=== PATIENT | male | born 1970 | race Caucasian/White ===

== ENCOUNTER → 2016-09-26 | Outpatient (CLI) | payer OTHER | END | disposition home or self-care (01) | LOC: EDSTATUS 09-25 08:31 → ROC 08:23 | PROVIDERS: ATTEND Radiology Radiation Oncology | DX: C76.0 Malignant neoplasm of head, face and neck (principal); F17.200 Nicotine dependence, unspecified, uncomplicated; F10.20 Alcohol dependence, uncomplicated; Z88.0 Allergy status to penicillin; Z79.899 Other long term (current) drug therapy | CPT/HCPCS: 99212; G0463 ==

== ENCOUNTER → 2016-11-02 | Outpatient (CLI) | payer OTHER | END | disposition home or self-care (01) | LOC: ROC 08:15 | PROVIDERS: ATTEND Radiology Radiation Oncology | DX: Z08 Encounter for follow-up examination after completed treatment for malignant neoplasm (principal); C76.0 Malignant neoplasm of head, face and neck; R63.5 Abnormal weight gain; Z92.3 Personal history of irradiation; Z88.0 Allergy status to penicillin | CPT/HCPCS: 99212; G0463 ==

== ENCOUNTER → 2016-11-16 | Outpatient (CLI) | payer OTHER | END | disposition home or self-care (01) | LOC: ROC 09:56 | PROVIDERS: ATTEND Radiology Radiation Oncology | DX: C76.0 Malignant neoplasm of head, face and neck (principal) | CPT/HCPCS: 99212; G0463 ==

== ENCOUNTER → 2016-12-01 | Outpatient (CLI) | payer OTHER, MEDICAID ==
[~2016-12-01] MED LIST: CITA40TA12 PO; DEXA1TAB5 PO; HYDR120S6 PO; LEVO50TA5 PO; LORA0.5T PO; Zinc PO; [UNRECOGNIZED DRUG - OTHER] PO
== END ==
LOC: STAR 14:06
PROVIDERS: ATTEND Otolaryngology
DX: Z02.9 Encounter for administrative examinations, unspecified (principal)

== ENCOUNTER 2016-12-05 05:19 | Day surgery (SDC) | payer OTHER, MEDICAID ==
[~2016-12-05] VITALS: Ht 185.4 cm; Wt 64.2 kg
[2016-12-05 06:18] VITALS: BP 153/104
[2016-12-05] MEDS ORDERED: LACTATED RINGERS 1,000 ML IV SCH (06:21)
[2016-12-05] MEDS ORDERED: EPINEPHRINE 1 MG/ML, 1ML ONE ×2 (07:05→08:29)
[2016-12-05] MEDS ORDERED: EPINEPHRINE TOPICAL SOLN 1 MG/ML, 30ML ONE (07:05)
[2016-12-05] MEDS ORDERED: FLUORESCEIN OPHTHALMIC 1 MG STRIP ONE (07:06)
[2016-12-05] MEDS ORDERED: MIDAZOLAM 1 MG/ML, 2ML ONE (07:14)
[2016-12-05] MEDS ORDERED: PROPOFOL 10 MG/ML, 20ML ONE (07:14)
[2016-12-05] MEDS ORDERED: FENTANYL PF 100 MCG/2ML ONE (07:14)
[2016-12-05] MEDS ORDERED: LIDOCAINE-MPF 2% ,5ML ONE (07:15)
[2016-12-05] MEDS ORDERED: PHENYLEPHRINE 10 MG/ML ONE (07:16)
[2016-12-05] MEDS ORDERED: ROCURONIUM 10 MG/ML ONE (07:16)
[2016-12-05] MEDS ORDERED: ONDANSETRON 2MG/ML, 2ML ONE ×3 (07:41)
[2016-12-05] MEDS ORDERED: DEXAMETHASONE 4 MG/ML, 1ML ONE ×2 (07:41)
[2016-12-05] MEDS ORDERED: CEFAZOLIN 1,000 MG ONE ×2 (07:46)
[2016-12-05] MEDS ORDERED: HYDROmorphone 1 MG/ML, 1ML ONE (07:52)
[2016-12-05] MEDS ORDERED: LIDOCAINE/PF 1%, 30ML INFIL ONE (07:56)
[2016-12-05] MEDS ORDERED: EPINEPHRINE 1 MG/ML, 1ML INFIL ONE (07:57)
[2016-12-05] MEDS ORDERED: FENTANYL PF 100 MCG/2ML IV PRN (08:00)
[2016-12-05] MEDS ORDERED: LORazepam 2 MG/ML, 1ML IVPush PRN (08:00)
[2016-12-05] MEDS ORDERED: LABETALOL 5MG/ML, 20ML IV PRN (08:00)
[2016-12-05] MEDS ORDERED: OXYcodone 5 MG/5 ML ORAL.SOL UDC PO PRN (08:00)
[2016-12-05] MEDS ORDERED: ACETAMINOPHEN 325 MG TABLET PO PRN (08:00)
[2016-12-05] MEDS ORDERED: HYDROmorphone 1 MG/ML, 1ML IV PRN (08:00)
[2016-12-05] MEDS ORDERED: hydrALAzine 20 MG/ML, 1ML IV PRN (08:00)
[2016-12-05] MEDS ORDERED: MEPERIDINE/PF 25MG/0.5ML IVPush PRN (08:00)
[2016-12-05] MEDS ORDERED: ONDANSETRON 2MG/ML, 2ML IVPush PRN (08:00)
[2016-12-05] MEDS ORDERED: PROMETHAZINE 25 MG/ML, 1ML IV PRN (08:00)
[2016-12-05] MEDS ORDERED: LIDOCAINE/PF 1%, 30ML ONE (08:29)
[2016-12-05] MEDS ORDERED: ACETAMINOPHEN 650 MG/20.3 ML UDC ONE (08:58)
[2016-12-05] MEDS ORDERED: OXYcodone 5 MG/5 ML ORAL.SOL UDC ONE (08:58)
[2016-12-05] MEDS ORDERED: LABETALOL 5MG/ML, 20ML ONE (09:02)
== END 2016-12-05 10:20 ==
LOC: OUT 05:19
PROVIDERS: ATTEND Otolaryngology
DX: C06.89 Malignant neoplasm of overlapping sites of other parts of mouth (principal); K13.21 Leukoplakia of oral mucosa, including tongue; I10 Essential (primary) hypertension; Z88.0 Allergy status to penicillin; F32.9 Major depressive disorder, single episode, unspecified; F41.9 Anxiety disorder, unspecified; E03.9 Hypothyroidism, unspecified; Z85.828 Personal history of other malignant neoplasm of skin
CPT/HCPCS: 31535; 41112; 88305; J0171; J0690; J1100; J1170; J2250; J2370; J2405; J2704; J3010; J3490; J7120

== ENCOUNTER → 2017-01-18 | Outpatient (CLI) | payer OTHER, MEDICAID | END | disposition home or self-care (01) | LOC: ROC 12:58 | PROVIDERS: ATTEND Radiology Radiation Oncology | DX: Z08 Encounter for follow-up examination after completed treatment for malignant neoplasm (principal); C44.42 Squamous cell carcinoma of skin of scalp and neck; C80.1 Malignant (primary) neoplasm, unspecified; Z88.0 Allergy status to penicillin | CPT/HCPCS: 99212; G0463 ==

== ENCOUNTER → 2017-03-05 | Outpatient (CLI) | payer MEDICAID | END | disposition home or self-care (01) | LOC: ROC 10:35 | PROVIDERS: ATTEND Radiology Radiation Oncology | DX: C76.0 Malignant neoplasm of head, face and neck (principal) | CPT/HCPCS: 99212; G0463 ==

== ENCOUNTER → 2017-03-19 | Outpatient (CLI) | payer MEDICAID | END | disposition home or self-care (01) | LOC: ROC 08:28 | PROVIDERS: ATTEND Radiology Radiation Oncology | DX: C44.42 Squamous cell carcinoma of skin of scalp and neck (principal); Z88.0 Allergy status to penicillin | CPT/HCPCS: 99212; G0463 ==

== ENCOUNTER 2017-03-27 15:12 | Inpatient (IN) | payer MEDICAID ==
[~2017-03-27] VITALS: Ht 185.4 cm; Wt 54.8 kg
[2017-03-27] MEDS ORDERED: DEXAMETHASONE 4 MG/ML, 1ML PO ONE (15:30)
[2017-03-27 15:52] LABS: MEAN CORPUSCULAR HEMOGLOBIN 32.5 pg (27.5-34.5); MEAN CORPUSCULAR HGB CONC 33.5 g/dL (33.2-36.2); MEAN CORPUSCULAR VOLUME 96.8 fL (81-97); MEAN PLATELET VOLUME 7.9 fL (7.4-10.4); PLATELET COUNT 233 x10^3/uL (130-400); RED CELL DISTRIBUTION WIDTH 14.5 % (9.4-14.8)
[2017-03-27 15:56] LABS: MD YES
[2017-03-27 16:03] LABS: ALBUMIN 3.7 g/dL (3.4-5.0); ANION GAP 13 mmol/L (5-15); CALCIUM 8.5 mg/dL (8.5-10.1); CHLORIDE 94 mmol/L (98-107)
[2017-03-27 16:04] LABS: CREATININE 0.68 mg/dL (0.7-1.3)
[2017-03-27 16:28] LABS: BANDS%(MANUAL) 4 % (0-7); LYMPHS% (MANUAL) 6 % (22-44); MONOS% (MANUAL) 6 % (2-9); SEGS% (MANUAL) 84 % (42-75)
[2017-03-27 16:30] LABS: <PLATELET ESTIMATE> ADEQUATE; <PLT MORPHOLOGY> NORMAL PLT MORPH; <RBC MORPHOLOGY> NORMAL
[2017-03-27] MEDS ORDERED: MORPHINE SULFATE 4 MG/ML, 1ML IVPush PRN (19:30)
[2017-03-27] MEDS ORDERED: CEFTRIAXONE PMX 1GM/50ML 50 ML IV ONE (19:30)
[2017-03-27] MEDS ORDERED: SODIUM CHLORIDE 0.9% 1,000ML IVBOLUS ONE (19:30)
[2017-03-27] MEDS ORDERED: ONDANSETRON 2MG/ML, 2ML IVPush ONE (19:30)
[2017-03-27] MEDS ORDERED: DEXAMETHASONE 4 MG/ML, 1ML IVPush ONE (19:30)
[2017-03-27] MEDS ORDERED: MORPHINE SULFATE 4 MG/ML, 1ML ONE (19:42)
[2017-03-27] MEDS ORDERED: LEVO75TA5 PO (20:43)
[2017-03-27] MEDS ORDERED: CEFTRIAXONE PMX 1GM/50ML 50 ML ONE (20:51)
[2017-03-27] MEDS ORDERED: FLUCONAZOLE 100MG/50ML 100 MG in BAG 1 EACH IV SCH (21:00)
[2017-03-27] MEDS ORDERED: ONDANSETRON 2MG/ML, 2ML IVPush PRN (21:00)
[2017-03-27] MEDS ORDERED: NYSTATIN 500,000 UNITS/5 ML UDC PO ONE (21:00)
[2017-03-27] MEDS: CEFTRIAXONE PMX 1GM/50ML 50 ML IV SCH (21:00)
[2017-03-27] MEDS: ENOXAPARIN 40 MG/0.4 ML SQ SCH (21:00)
[2017-03-27] MEDS ORDERED: maalox/diphenh/lido/sucralfate 5 ML PO PRN (21:00)
[2017-03-27 21:38] VITALS: BP 149/91
[2017-03-27] MEDS: morphine SULFATE 10 MG/ML, 1ML IVPush PRN (22:46)
[2017-03-27] MEDS ORDERED: LORazepam 0.5MG TABLET PO PRN (23:30)
[2017-03-27] MEDS: NICOTINE 21 MG/24 HR PATCH.TD24 TD SCH (23:59)
[2017-03-28 01:08] VITALS: BP 133/87
[2017-03-28] MEDS ORDERED: MORPHINE SULFATE 4 MG/ML, 1ML ONE (02:22)
[2017-03-28] MEDS: morphine SULFATE 10 MG/ML, 1ML IVPush PRN ×4 (02:25→20:20)
[2017-03-28] MEDS: ZOLPIDEM 5MG TABLET PO PRN ×2 (02:36→23:27)
[2017-03-28 02:49] LABS: MEAN CORPUSCULAR HEMOGLOBIN 32.6 pg (27.5-34.5); MEAN CORPUSCULAR VOLUME 95.8 fL (81-97); MEAN PLATELET VOLUME 8.2 fL (7.4-10.4); PLATELET COUNT 218 x10^3/uL (130-400); RED CELL DISTRIBUTION WIDTH 14.7 % (9.4-14.8)
[2017-03-28 02:58] LABS: ANION GAP 13 mmol/L (5-15); CALCIUM 8.3 mg/dL (8.5-10.1); CHLORIDE 102 mmol/L (98-107); CREATININE 0.54 mg/dL (0.7-1.3)
[2017-03-28 03:03] LABS: MD YES
[2017-03-28 03:06] LABS: BAND#(MANUAL) 1.04 x10^3/uL; BANDS%(MANUAL) 5 % (0-7); SEG#(MANUAL) 19.76 x10^3/uL (1.8-6.8); SEGS% (MANUAL) 95 % (42-75)
[2017-03-28 03:07] LABS: <PLATELET ESTIMATE> ADEQUATE; <PLT MORPHOLOGY> NORMAL PLT MORPH; <RBC MORPHOLOGY> NORMAL
[2017-03-28 07:26] VITALS: BP 141/95
[2017-03-28] MEDS ORDERED: LORazepam 0.5MG TABLET PO ONE (09:30)
[2017-03-28 13:47] VITALS: BP 154/84
[2017-03-28 14:11] LABS: CLOSTRIDIUM DIFFICILE ANTIGEN NEGATIVE; CLOSTRIDIUM DIFFICILE TOXIN NEGATIVE (Negative)
[2017-03-28] MEDS: SUCRALFATE 1 GM/10 ML UDC PO SCH ×2 (16:31→20:20)
[2017-03-28 19:14] VITALS: BP 155/92
[2017-03-28] MEDS: CEFTRIAXONE PMX 1GM/50ML 50 ML IV SCH (20:20)
[2017-03-28] MEDS: LORazepam 0.5MG TABLET PO SCH (20:20)
[2017-03-28] MEDS: ENOXAPARIN 40 MG/0.4 ML SQ SCH (20:23)
[2017-03-28] MEDS: NICOTINE 21 MG/24 HR PATCH.TD24 TD SCH (22:11)
[2017-03-28] MEDS ORDERED: FLUCONAZOLE 200 MG/100 ML 100 ML IV ONE (22:30)
[2017-03-29 01:55] VITALS: BP 142/97
[2017-03-29 03:16] LABS: MEAN CORPUSCULAR HEMOGLOBIN 32.4 pg (27.5-34.5); MEAN CORPUSCULAR HGB CONC 33.6 g/dL (33.2-36.2); MEAN CORPUSCULAR VOLUME 96.3 fL (81-97); PLATELET COUNT 184 x10^3/uL (130-400); RED BLOOD COUNT 4.54 x10^6/uL (4.38-5.82); RED CELL DISTRIBUTION WIDTH 14.7 % (9.4-14.8)
[2017-03-29 03:24] LABS: ANION GAP 10 mmol/L (5-15); CALCIUM 8.5 mg/dL (8.5-10.1); CHLORIDE 99 mmol/L (98-107); CREATININE 0.59 mg/dL (0.7-1.3)
[2017-03-29 03:39] LABS: BASOPHILS % (AUTO) 0 % (0-1); EOSINOPHILS % (AUTO) 0 % (1-7); LYMPHOCYTES # (AUTO) 0.56 x10^3/uL (1-3.4); LYMPHOCYTES % (AUTO) 3 % (22-44); MD SCAN; MONOCYTES # (AUTO) 0.71 x10^3/uL (0.2-0.8); MONOCYTES % (AUTO) 4 % (2-9); NEUTROPHILS # (AUTO) 16.56 x10^3/uL (1.8-6.8); NEUTROPHILS % (AUTO) 93 % (42-75)
[2017-03-29] MEDS: morphine SULFATE 10 MG/ML, 1ML IVPush PRN ×3 (06:11→20:06)
[2017-03-29] MEDS: SUCRALFATE 1 GM/10 ML UDC PO SCH ×4 (06:11→20:06)
[2017-03-29 06:36] VITALS: BP 157/91
[2017-03-29] MEDS: LORazepam 0.5MG TABLET PO SCH ×2 (07:53→20:06)
[2017-03-29 12:13] VITALS: BP 126/90
[2017-03-29 18:49] VITALS: BP 127/89
[2017-03-29] MEDS: NICOTINE 21 MG/24 HR PATCH.TD24 TD SCH (20:06)
[2017-03-29] MEDS: ENOXAPARIN 40 MG/0.4 ML SQ SCH (20:06)
[2017-03-29] MEDS: NEUTRA PHOS K 250 MG TABLET PO SCH (20:06)
[2017-03-29] MEDS: ZOLPIDEM 5MG TABLET PO PRN (22:06)
[2017-03-29] MEDS ORDERED: FLUCONAZOLE 100MG/50ML 100 MG in BAG 1 EACH IVPB SCH (22:30)
[2017-03-30 00:50] VITALS: BP 142/98
[2017-03-30] MEDS: morphine SULFATE 10 MG/ML, 1ML IVPush PRN ×2 (04:41→08:48)
[2017-03-30 05:03] LABS: ANION GAP 3 mmol/L (5-15); CALCIUM 8.2 mg/dL (8.5-10.1); CHLORIDE 100 mmol/L (98-107); CREATININE 0.62 mg/dL (0.7-1.3)
[2017-03-30 05:08] LABS: BASOPHILS # (AUTO) 0.01 x10^3/uL (0-0.1); BASOPHILS % (AUTO) 0 % (0-1); EOSINOPHILS # (AUTO) 0.03 x10^3/uL (0-0.4); EOSINOPHILS % (AUTO) 0 % (1-7); LYMPHOCYTES # (AUTO) 0.76 x10^3/uL (1-3.4); LYMPHOCYTES % (AUTO) 9 % (22-44); MD NO; MEAN CORPUSCULAR HEMOGLOBIN 32.4 pg (27.5-34.5); MEAN CORPUSCULAR HGB CONC 33.8 g/dL (33.2-36.2); MEAN CORPUSCULAR VOLUME 95.9 fL (81-97); MONOCYTES % (AUTO) 4 % (2-9); NEUTROPHILS # (AUTO) 7.55 x10^3/uL (1.8-6.8); NEUTROPHILS % (AUTO) 87 % (42-75); PLATELET COUNT 171 x10^3/uL (130-400); RED BLOOD COUNT 4.35 x10^6/uL (4.38-5.82); RED CELL DISTRIBUTION WIDTH 14.4 % (9.4-14.8)
[2017-03-30] MEDS: SUCRALFATE 1 GM/10 ML UDC PO SCH ×2 (06:05→11:05)
[2017-03-30 06:38] VITALS: BP 133/83
[2017-03-30] MEDS ORDERED: MAGNESIUM SULFATE PMX 2GM/50ML 50 ML IV ONE (07:30)
[2017-03-30] MEDS: NICOTINE 21 MG/24 HR PATCH.TD24 TD SCH (08:41)
[2017-03-30] MEDS: NEUTRA PHOS K 250 MG TABLET PO SCH (08:41)
[2017-03-30] MEDS: LORazepam 0.5MG TABLET PO SCH (08:42)
[2017-03-30] MEDS ORDERED: SUCR1ORA5 PO (11:23)
[2017-03-30] MEDS ORDERED: FLUC100T PO (11:23)
[2017-03-30 13:02] VITALS: BP 124/87
== END 2017-03-30 15:30 | disposition home or self-care (01) | DRG 872 ==
LOC: ED 19:32 → 3NW 19:43 → DCLOUNGE 03-30 15:13
PROVIDERS: ADMIT Internal Medicine; ATTEND Internal Medicine
DX: A41.9 Sepsis, unspecified organism (principal); B37.81 Candidal esophagitis; E83.39 Other disorders of phosphorus metabolism; E83.42 Hypomagnesemia; F11.20 Opioid dependence, uncomplicated; J02.9 Acute pharyngitis, unspecified; R63.3 Feeding difficulties; F17.210 Nicotine dependence, cigarettes, uncomplicated; F10.20 Alcohol dependence, uncomplicated; F41.9 Anxiety disorder, unspecified; G89.29 Other chronic pain; Z83.3 Family history of diabetes mellitus; Z85.819 Personal history of malignant neoplasm of unspecified site of lip, oral cavity, and pharynx; Z92.21 Personal history of antineoplastic chemotherapy; Z92.3 Personal history of irradiation; Z88.0 Allergy status to penicillin
CPT/HCPCS: 36415; 80048; 82040; 83605; 83735; 84100; 85025; 86703; 87040; 87081; 87324; 87880; 87899; 96374; J0696; J1100; G0435; J1450; J2270; J3475; J7030

== ENCOUNTER 2017-04-11 18:28 | Emergency (ER) | payer MEDICAID ==
[~2017-04-11] VITALS: Ht 185.4 cm; Wt 60.0 kg
[~2017-04-11 18:28] MED LIST changes: +FLUC100T PO; +LEVO75TA5 PO; +SUCR1ORA5 PO
[2017-04-11] MEDS ORDERED: SODIUM CHLORIDE 0.9% 1,000 ML IV ONE (18:38)
[2017-04-11 19:00] LABS: BASOPHILS # (AUTO) 0.03 x10^3/uL (0-0.1); BASOPHILS % (AUTO) 0 % (0-1); EOSINOPHILS # (AUTO) 0.07 x10^3/uL (0-0.4); EOSINOPHILS % (AUTO) 1 % (1-7); LYMPHOCYTES # (AUTO) 1.32 x10^3/uL (1-3.4); LYMPHOCYTES % (AUTO) 10 % (22-44); MD NO; MEAN CORPUSCULAR HEMOGLOBIN 32.6 pg (27.5-34.5); MEAN CORPUSCULAR HGB CONC 33.4 g/dL (33.2-36.2); MEAN CORPUSCULAR VOLUME 97.6 fL (81-97); MEAN PLATELET VOLUME 6.6 fL (7.4-10.4); MONOCYTES # (AUTO) 0.61 x10^3/uL (0.2-0.8); MONOCYTES % (AUTO) 5 % (2-9); NEUTROPHILS # (AUTO) 10.85 x10^3/uL (1.8-6.8); NEUTROPHILS % (AUTO) 84 % (42-75); PLATELET COUNT 614 x10^3/uL (130-400); RED BLOOD COUNT 4.28 x10^6/uL (4.38-5.82); RED CELL DISTRIBUTION WIDTH 15.8 % (9.4-14.8)
[2017-04-11] MEDS ORDERED: ONDANSETRON 2MG/ML, 2ML IVPush ONE (19:00)
[2017-04-11] MEDS ORDERED: SODIUM CHLORIDE 0.9% 1,000ML IVBOLUS ONE (19:00)
[2017-04-11] MEDS ORDERED: MORPHINE SULFATE 4 MG/ML, 1ML IVPush PRN (19:00)
[2017-04-11 19:10] LABS: ANION GAP 7 mmol/L (5-15); CALCIUM 8.3 mg/dL (8.5-10.1); CHLORIDE 105 mmol/L (98-107); CREATININE 0.62 mg/dL (0.7-1.3)
[2017-04-11 19:11] LABS: ALBUMIN 3.7 g/dL (3.4-5.0)
[2017-04-11] MEDS ORDERED: ONDANSETRON 2MG/ML, 2ML ONE (20:09)
[2017-04-11] MEDS ORDERED: MORPHINE SULFATE 4 MG/ML, 1ML ONE (20:09)
[2017-04-11] MEDS ORDERED: IBUP-1221 PO (20:32)
[2017-04-11] MEDS ORDERED: CLON-364 PO (20:32)
[2017-04-11] MEDS ORDERED: PILO5TAB PO (20:32)
[2017-04-11] MEDS ORDERED: ZALE5CAP PO (20:32)
[2017-04-11] MEDS ORDERED: ACET-1600 PO (20:32)
[2017-04-11] MEDS ORDERED: CEFTRIAXONE PMX 1GM/50ML 50 ML IV ONE (21:00)
[2017-04-11] MEDS ORDERED: DEXAMETHASONE 4 MG/ML, 5ML ONE (21:00)
[2017-04-11] MEDS ORDERED: CEFTRIAXONE PMX 1GM/50ML 50 ML ONE (21:00)
[2017-04-11] MEDS ORDERED: DEXAMETHASONE 4 MG/ML, 1ML IVPush ONE (21:00)
[2017-04-11 21:37] VITALS: BP 116/74
== END 2017-04-11 21:53 | disposition home or self-care (01) ==
LOC: ED 20:11
DX: R13.14 Dysphagia, pharyngoesophageal phase (principal); J02.0 Streptococcal pharyngitis
CPT/HCPCS: 36415; 71045; 80048; 82040; 85025; 96361; 96365; 96375; 99285; J0696; J1100; J2405; J7030

== ENCOUNTER 2017-05-01 20:16 | Inpatient (IN) | payer MEDICAID ==
[~2017-05-01] VITALS: Ht 182.9 cm; Wt 67.5 kg
[~2017-05-01 20:16] MED LIST changes: +ACET-1600 PO; +CLON-364 PO; +IBUP-1221 PO; +PILO5TAB PO; +ZALE5CAP PO
[2017-05-01] MEDS ORDERED: SODIUM CHLORIDE FLUSH 10ML SYR IVF ONE (21:00)
[2017-05-01] MEDS ORDERED: LORazepam 2 MG/ML, 1ML IVPush ONE (21:00)
[2017-05-01] MEDS ORDERED: SODIUM CHLORIDE 0.9% 1,000ML IVBOLUS ONE ×2 (21:00→22:30)
[2017-05-01 21:09] LABS: MEAN CORPUSCULAR HEMOGLOBIN 32.9 pg (27.5-34.5); MEAN CORPUSCULAR HGB CONC 34.1 g/dL (33.2-36.2); MEAN CORPUSCULAR VOLUME 96.4 fL (81-97); MEAN PLATELET VOLUME 6.1 fL (7.4-10.4); PLATELET COUNT 526 x10^3/uL (130-400); RED BLOOD COUNT 3.98 x10^6/uL (4.38-5.82); RED CELL DISTRIBUTION WIDTH 16.9 % (9.4-14.8)
[2017-05-01 21:23] LABS: ALANINE AMINOTRANSFERASE 57 U/L (12-78); ALBUMIN 3.8 g/dL (3.4-5.0); ANION GAP 9 mmol/L (5-15); CALCIUM 8.3 mg/dL (8.5-10.1); CHLORIDE 102 mmol/L (98-107); CREATININE 0.61 mg/dL (0.7-1.3)
[2017-05-01 21:27] LABS: MD YES
[2017-05-01 21:28] LABS: ALKALINE PHOSPHATASE 224 U/L (45-117); BILIRUBIN,TOTAL 0.6 mg/dL (0.2-1.0); TOTAL PROTEIN 7.6 g/dL (6.4-8.2)
[2017-05-01 21:30] LABS: BAND#(MANUAL) 0.22 x10^3/uL; BANDS%(MANUAL) 1 % (0-7); LYMPH#(MANUAL) 0.44 x10^3/uL (1-3.4); LYMPHS% (MANUAL) 2 % (22-44); MONOS#(MANUAL) 0.44 x10^3/uL (0.3-2.7); MONOS% (MANUAL) 2 % (2-9); SEG#(MANUAL) 20.81 x10^3/uL (1.8-6.8); SEGS% (MANUAL) 95 % (42-75)
[2017-05-01 21:31] LABS: <PLATELET ESTIMATE> INCREASED; <PLT MORPHOLOGY> NORMAL PLT MORPH; <RBC MORPHOLOGY> NORMAL
[2017-05-01] MEDS ORDERED: LORazepam 2 MG/ML, 1ML ONE (21:38)
[2017-05-01] MEDS ORDERED: OMNIPAQUE 350 MG/ML, 100ML BOTTLE ONE (21:53)
[2017-05-01] MEDS ORDERED: ZALE5CAP PO (22:18)
[2017-05-01] MEDS ORDERED: ZOLP10TA5 PO (22:18)
[2017-05-01] MEDS ORDERED: LORA0.5T PO (22:18)
[2017-05-01] MEDS ORDERED: AZITHROMYCIN 500 MG in SODIUM CHLORIDE 0.9% 250 ML IV ONE (22:30)
[2017-05-01] MEDS ORDERED: CEFTRIAXONE PMX 1GM/50ML 50 ML IVPB ONE (22:30)
[2017-05-01] MEDS ORDERED: CEFTRIAXONE PMX 1GM/50ML 50 ML ONE (22:36)
[2017-05-01] MEDS ORDERED: ZOLPIDEM 10MG TABLET PO SCH (23:30)
[2017-05-01] MEDS: HEPARIN 5,000 UNITS/ML, 1ML SQ SCH (23:30)
[2017-05-01] MEDS ORDERED: ONDANSETRON 2MG/ML, 2ML IVPush PRN (23:30)
[2017-05-01] MEDS ORDERED: CEFTRIAXONE PMX 1GM/50ML 50 ML IV SCH (23:30)
[2017-05-01] MEDS: TEMPLATE NON-FORMULARY MED. (Zaleplon** 10 MG) HOMEMEDPO SCH (23:30)
[2017-05-01] MEDS ORDERED: ACETAMINOPHEN 325 MG TABLET PO PRN (23:30)
[2017-05-01] MEDS ORDERED: POLYETHYLENE GLYCOL 17 GM PACKET PO PRN (23:30)
[2017-05-01] MEDS ORDERED: BISACODYL 10 MG SUPP PR PRN (23:30)
[2017-05-01] MEDS ORDERED: AZITHROMYCIN 500 MG in SODIUM CHLORIDE 0.9% 250 ML IV SCH (23:30)
[2017-05-01] MEDS ORDERED: CEFEPIME 2 GM in DEXTROSE 5% 100 ML IV SCH (23:30)
[2017-05-01] MEDS ORDERED: GUAIFENESIN/DM 200-20MG, 10ML UDC PO PRN (23:30)
[2017-05-01] MEDS: TEMPLATE NON-FORMULARY MED. (Pilocarpine Hcl** 5 MG) HOMEMEDPO SCH (23:30)
[2017-05-02] MEDS: NICOTINE 14MG/24 HR PATCH.TD24 TD SCH ×2 (00:37→21:54)
[2017-05-02] MEDS: LORazepam 0.5MG TABLET PO SCH ×3 (00:38→15:30)
[2017-05-02] MEDS: SODIUM CHLORIDE 0.9% 1,000 ML IV SCH ×3 (00:41→21:56)
[2017-05-02] MEDS: METRONIDAZOLE PMX 500MG/100ML 100 ML IV SCH ×3 (00:55→18:32)
[2017-05-02 00:56] LABS: MICROSCOPIC NOT IND
[2017-05-02 01:00] LABS: CULTURE INDICATED? NO
[2017-05-02 01:16] VITALS: BP 124/62
[2017-05-02] MEDS: CEFEPIME 2 GM in SODIUM CHLORIDE 0.9% 100 ML IV SCH ×2 (02:09→15:57)
[2017-05-02 06:13] LABS: MEAN CORPUSCULAR HEMOGLOBIN 33.2 pg (27.5-34.5); MEAN CORPUSCULAR HGB CONC 34.4 g/dL (33.2-36.2); MEAN CORPUSCULAR VOLUME 96.5 fL (81-97); MEAN PLATELET VOLUME 6.1 fL (7.4-10.4); PLATELET COUNT 424 x10^3/uL (130-400); RED BLOOD COUNT 3.29 x10^6/uL (4.38-5.82); RED CELL DISTRIBUTION WIDTH 16.8 % (9.4-14.8)
[2017-05-02 06:22] LABS: ALANINE AMINOTRANSFERASE 45 U/L (12-78); ALBUMIN 3.2 g/dL (3.4-5.0); ANION GAP 12 mmol/L (5-15); CALCIUM 7.4 mg/dL (8.5-10.1); CHLORIDE 104 mmol/L (98-107)
[2017-05-02 06:25] LABS: ALKALINE PHOSPHATASE 185 U/L (45-117); BILIRUBIN,TOTAL 0.5 mg/dL (0.2-1.0); TOTAL PROTEIN 6.1 g/dL (6.4-8.2)
[2017-05-02 06:45] LABS: BASOPHILS % (AUTO) 0 % (0-1); EOSINOPHILS % (AUTO) 0 % (1-7); LYMPHOCYTES # (AUTO) 0.77 x10^3/uL (1-3.4); LYMPHOCYTES % (AUTO) 5 % (22-44); MD MORPH REVIEW ONLY; MONOCYTES # (AUTO) 0.48 x10^3/uL (0.2-0.8); MONOCYTES % (AUTO) 3 % (2-9); NEUTROPHILS # (AUTO) 13.87 x10^3/uL (1.8-6.8); NEUTROPHILS % (AUTO) 92 % (42-75)
[2017-05-02 06:48] LABS: <PLATELET ESTIMATE> INCREASED; <PLT MORPHOLOGY> NORMAL PLT MORPH; ANISOCYTOSIS 1+; POLYCHROMASIA 1+
[2017-05-02] MEDS: LEVOTHYROXINE 75 MCG TABLET PO SCH (07:34)
[2017-05-02] MEDS: HEPARIN 5,000 UNITS/ML, 1ML SQ SCH ×3 (07:34→23:38)
[2017-05-02 07:54] VITALS: BP 180/94
[2017-05-02] MEDS ORDERED: LORazepam 2 MG/ML, 1ML IV PRN ×2 (08:30)
[2017-05-02] MEDS ORDERED: LORazepam 1MG TABLET PO PRN ×2 (08:30)
[2017-05-02] MEDS: LORazepam 2 MG/ML, 1ML IV PRN (08:52)
[2017-05-02] MEDS: TEMPLATE NON-FORMULARY MED. (Pilocarpine Hcl** 5 MG) HOMEMEDPO SCH ×3 (09:18→21:54)
[2017-05-02] MEDS: SENNA/DOCUSATE TABLET PO SCH (09:38)
[2017-05-02] MEDS: THIAMINE 100MG TABLET PO SCH (09:45)
[2017-05-02] MEDS: FOLIC ACID 1 MG TABLET PO SCH (09:45)
[2017-05-02] MEDS: GUAIFENESIN 200 MG TABLET PO SCH ×3 (09:45→21:53)
[2017-05-02] MEDS: MULTIVIT.W/IRON, MINERALS ORAL SOL PO SCH (10:32)
[2017-05-02 11:21] VITALS: BP 162/88
[2017-05-02 12:24] VITALS: BP 169/88
[2017-05-02] MEDS: CHLORDIAZEPOXIDE 10 MG CAPSULE PO SCH ×3 (13:00→21:53)
[2017-05-02] MEDS ORDERED: MAGNESIUM SULFATE PMX 2GM/50ML 50 ML IV ONE (13:00)
[2017-05-02] MEDS: LORazepam 1MG TABLET PO PRN (13:17)
[2017-05-02 20:00] VITALS: BP 163/84
[2017-05-02] MEDS: TEMPLATE NON-FORMULARY MED. (Zaleplon** 10 MG) HOMEMEDPO SCH (21:54)
[2017-05-03] MEDS: METRONIDAZOLE PMX 500MG/100ML 100 ML IV SCH ×3 (00:55→16:52)
[2017-05-03] MEDS: LORazepam 2 MG/ML, 1ML IV PRN (00:55)
[2017-05-03 02:00] VITALS: BP 162/91
[2017-05-03] MEDS: CEFEPIME 2 GM in SODIUM CHLORIDE 0.9% 100 ML IV SCH ×2 (03:02→14:14)
[2017-05-03] MEDS: GUAIFENESIN 200 MG TABLET PO SCH ×4 (05:46→21:14)
[2017-05-03 05:56] LABS: MEAN CORPUSCULAR HEMOGLOBIN 33.2 pg (27.5-34.5); MEAN CORPUSCULAR HGB CONC 33.4 g/dL (33.2-36.2); MEAN CORPUSCULAR VOLUME 99.4 fL (81-97); MEAN PLATELET VOLUME 6.5 fL (7.4-10.4); PLATELET COUNT 422 x10^3/uL (130-400); RED BLOOD COUNT 3.78 x10^6/uL (4.38-5.82); RED CELL DISTRIBUTION WIDTH 16.4 % (9.4-14.8)
[2017-05-03 06:03] LABS: ALANINE AMINOTRANSFERASE 43 U/L (12-78); ALBUMIN 3.3 g/dL (3.4-5.0); ANION GAP 8 mmol/L (5-15); CALCIUM 8.3 mg/dL (8.5-10.1); CHLORIDE 98 mmol/L (98-107); CREATININE 0.47 mg/dL (0.7-1.3)
[2017-05-03 06:05] LABS: ALKALINE PHOSPHATASE 206 U/L (45-117); BILIRUBIN,TOTAL 0.8 mg/dL (0.2-1.0); TOTAL PROTEIN 6.7 g/dL (6.4-8.2)
[2017-05-03 06:14] LABS: BASOPHILS % (AUTO) 0 % (0-1); EOSINOPHILS % (AUTO) 0 % (1-7); LYMPHOCYTES # (AUTO) 0.53 x10^3/uL (1-3.4); LYMPHOCYTES % (AUTO) 5 % (22-44); MD SCAN; MONOCYTES # (AUTO) 0.51 x10^3/uL (0.2-0.8); MONOCYTES % (AUTO) 5 % (2-9); NEUTROPHILS # (AUTO) 9.02 x10^3/uL (1.8-6.8); NEUTROPHILS % (AUTO) 90 % (42-75)
[2017-05-03 08:01] VITALS: BP 160/85
[2017-05-03] MEDS: TEMPLATE NON-FORMULARY MED. (Pilocarpine Hcl** 5 MG) HOMEMEDPO SCH ×3 (08:18→21:14)
[2017-05-03] MEDS: THIAMINE 100MG TABLET PO SCH (08:20)
[2017-05-03] MEDS: LEVOTHYROXINE 75 MCG TABLET PO SCH (08:20)
[2017-05-03] MEDS: HEPARIN 5,000 UNITS/ML, 1ML SQ SCH ×3 (08:21→23:30)
[2017-05-03] MEDS: FOLIC ACID 1 MG TABLET PO SCH (08:21)
[2017-05-03] MEDS: MULTIVIT.W/IRON, MINERALS ORAL SOL PO SCH (08:22)
[2017-05-03] MEDS: SODIUM CHLORIDE 0.9% 1,000 ML IV SCH ×2 (08:23→16:52)
[2017-05-03] MEDS: SENNA/DOCUSATE TABLET PO SCH (08:23)
[2017-05-03 12:35] VITALS: BP 152/92
[2017-05-03] MEDS: LORazepam 1MG TABLET PO PRN (14:43)
[2017-05-03 15:18] LABS: FOLATE LEVEL 12.2 ng/mL (3.1-17.5); THYROID STIMULATING HORMONE 6.22 mIU/L (0.358-3.740)
[2017-05-03] MEDS: POTASSIUM CHLORIDE 20 MEQ TAB.ER.PRT PO SCH (16:53)
[2017-05-03 18:33] VITALS: BP 153/94
[2017-05-03] MEDS: LORazepam 0.5MG TABLET PO PRN (21:13)
[2017-05-03] MEDS: NICOTINE 14MG/24 HR PATCH.TD24 TD SCH (21:14)
[2017-05-03] MEDS: TEMPLATE NON-FORMULARY MED. (Zaleplon** 10 MG) HOMEMEDPO SCH (21:14)
[2017-05-04 00:38] VITALS: BP 160/91
[2017-05-04] MEDS: METRONIDAZOLE PMX 500MG/100ML 100 ML IV SCH ×2 (01:02→09:16)
[2017-05-04] MEDS: SODIUM CHLORIDE 0.9% 1,000 ML IV SCH ×2 (01:02→12:11)
[2017-05-04] MEDS: CEFEPIME 2 GM in SODIUM CHLORIDE 0.9% 100 ML IV SCH (02:20)
[2017-05-04] MEDS: LORazepam 0.5MG TABLET PO PRN ×2 (03:31→12:11)
[2017-05-04] MEDS: GUAIFENESIN 200 MG TABLET PO SCH ×2 (06:00→11:00)
[2017-05-04 06:21] LABS: BASOPHILS % (AUTO) 0 % (0-1); CALCIUM 8.4 mg/dL (8.5-10.1); CHLORIDE 104 mmol/L (98-107); EOSINOPHILS # (AUTO) 0.04 x10^3/uL (0-0.4); EOSINOPHILS % (AUTO) 1 % (1-7); LYMPHOCYTES # (AUTO) 0.52 x10^3/uL (1-3.4); LYMPHOCYTES % (AUTO) 7 % (22-44); MD NO; MEAN CORPUSCULAR HEMOGLOBIN 32.8 pg (27.5-34.5); MEAN CORPUSCULAR HGB CONC 33.3 g/dL (33.2-36.2); MEAN CORPUSCULAR VOLUME 98.4 fL (81-97); MEAN PLATELET VOLUME 6.8 fL (7.4-10.4); MONOCYTES % (AUTO) 7 % (2-9); NEUTROPHILS # (AUTO) 6.36 x10^3/uL (1.8-6.8); NEUTROPHILS % (AUTO) 86 % (42-75); PLATELET COUNT 353 x10^3/uL (130-400); RED BLOOD COUNT 3.52 x10^6/uL (4.38-5.82); RED CELL DISTRIBUTION WIDTH 16.2 % (9.4-14.8)
[2017-05-04 06:22] LABS: ANION GAP 5 mmol/L (5-15); CREATININE 0.49 mg/dL (0.7-1.3)
[2017-05-04] MEDS: HEPARIN 5,000 UNITS/ML, 1ML SQ SCH (07:50)
[2017-05-04] MEDS: POTASSIUM CHLORIDE 20 MEQ TAB.ER.PRT PO SCH (07:50)
[2017-05-04 08:21] VITALS: BP 158/87
[2017-05-04] MEDS: SENNA/DOCUSATE TABLET PO SCH (09:00)
[2017-05-04] MEDS: TEMPLATE NON-FORMULARY MED. (Pilocarpine Hcl** 5 MG) HOMEMEDPO SCH (09:00)
[2017-05-04] MEDS: FOLIC ACID 1 MG TABLET PO SCH (09:16)
[2017-05-04] MEDS: MULTIVIT.W/IRON, MINERALS ORAL SOL PO SCH (09:16)
[2017-05-04] MEDS: THIAMINE 100MG TABLET PO SCH (09:16)
[2017-05-04] MEDS: LEVOTHYROXINE 75 MCG TABLET PO SCH (09:16)
[2017-05-04 11:36] LABS: FREE T4 (FREE THYROXINE) 0.74 ng/dL (0.76-1.46); THYROID STIMULATING HORMONE 8.07 mIU/L (0.358-3.740)
[2017-05-04] MEDS ORDERED: THIA100T6 PO (13:00)
[2017-05-04] MEDS ORDERED: FOLI-17 PO (13:00)
[2017-05-04] MEDS ORDERED: Multivit.w/Iron, Minerals PO (13:00)
[2017-05-04] MEDS ORDERED: MAGNESIUM SULFATE PMX 2GM/50ML 50 ML IV ONE (13:00)
[2017-05-04] MEDS ORDERED: MAGN400T26 PO (13:00)
[2017-05-04] MEDS ORDERED: CEFD300C37 PO (13:00)
[2017-05-04] MEDS ORDERED: LEVO75TA PO (13:00)
[2017-05-04] MEDS ORDERED: METR500T PO (13:00)
[2017-05-04 13:20] VITALS: BP 149/84
[2017-05-04] MEDS ORDERED: PNEUMOCOCCAL 23 VACCINE IM-VACC ONE (15:30)
[2017-05-05] MEDS ORDERED: LEVOTHYROXINE 25 MCG TABLET PO SCH (06:00)
[2017-05-05] MEDS ORDERED: LEVOTHYROXINE 88 MCG TABLET PO SCH (09:00)
[2017-05-05] MEDS ORDERED: MAGNESIUM OXIDE 400 MG TABLET PO SCH (09:00)
== END 2017-05-04 16:45 | disposition home or self-care (01) | DRG 871 ==
LOC: ED 21:57 → 3NE 05-02 00:08 → 4WST 05-02 10:40
PROVIDERS: ADMIT Internal Medicine; ATTEND Internal Medicine
DX: A41.9 Sepsis, unspecified organism (principal); J69.0 Pneumonitis due to inhalation of food and vomit; E87.2 Acidosis; C79.51 Secondary malignant neoplasm of bone; E44.1 Mild protein-calorie malnutrition; E83.42 Hypomagnesemia; S09.90XA Unspecified injury of head, initial encounter; W18.30XA Fall on same level, unspecified, initial encounter; F10.220 Alcohol dependence with intoxication, uncomplicated; D53.9 Nutritional anemia, unspecified; E03.9 Hypothyroidism, unspecified; E87.6 Hypokalemia; I10 Essential (primary) hypertension; Z66 Do not resuscitate; F17.210 Nicotine dependence, cigarettes, uncomplicated; Z87.01 Personal history of pneumonia (recurrent); Y93.89 Activity, other specified; Y92.89 Other specified places as the place of occurrence of the external cause; Y99.8 Other external cause status; Z88.0 Allergy status to penicillin; Z68.20 Body mass index [BMI] 20.0-20.9, adult; Z71.6 Tobacco abuse counseling; Z83.3 Family history of diabetes mellitus; Z85.819 Personal history of malignant neoplasm of unspecified site of lip, oral cavity, and pharynx; Z92.21 Personal history of antineoplastic chemotherapy; Z23 Encounter for immunization; Z90.89 Acquired absence of other organs
CPT/HCPCS: 36415; 70450; 71275; 72125; 80048; 80053; 80307; 81003; 82607; 82746; 83605; 83735; 84100; 84145; 84439; 84443; 85025; 87040; 87070; 87205; 90732; 93005; 96361; 96374; J0696; J1644; J2405; Q9967; J2060; J3475; J7030

== ENCOUNTER → 2017-05-09 | Outpatient (CLI) | payer MEDICAID ==
[~2017-05-09] MED LIST changes: +CEFD300C37 PO; +FOLI-17 PO; +LEVO75TA PO; +MAGN400T26 PO; +METR500T PO; +Multivit.w/Iron, Minerals PO; +THIA100T6 PO; +ZOLP10TA5 PO
== END | disposition home or self-care (01) ==
LOC: PETCFH 09:59
PROVIDERS: ATTEND Internal Medicine Hematology & Oncology
DX: C76.0 Malignant neoplasm of head, face and neck (principal)
CPT/HCPCS: 78306; A9503

== ENCOUNTER → 2017-05-10 | Outpatient (CLI) | payer MEDICAID ==
[~2017-05-10] MED LIST changes: +GADOBUTROL 7.5 MMOL/7.5 ML VIAL ONE
== END | disposition home or self-care (01) ==
LOC: CFH 11:51
PROVIDERS: ATTEND Internal Medicine Hematology & Oncology
DX: C79.51 Secondary malignant neoplasm of bone (principal); C76.0 Malignant neoplasm of head, face and neck; F43.22 Adjustment disorder with anxiety; G89.29 Other chronic pain; M51.37 Other intervertebral disc degeneration, lumbosacral region; M51.27 Other intervertebral disc displacement, lumbosacral region; M50.23 Other cervical disc displacement, cervicothoracic region
CPT/HCPCS: 72156; 72157; 72158; A9585

== ENCOUNTER 2017-05-29 06:05 | Day surgery (SDC) | payer MEDICAID ==
[~2017-05-29] VITALS: Ht 185.4 cm; Wt 61.0 kg
[~2017-05-29 06:05] MED LIST changes: -GADOBUTROL 7.5 MMOL/7.5 ML VIAL ONE
[2017-05-29] MEDS ORDERED: SODIUM CHLORIDE 0.9% 1,000 ML IV SCH (06:44)
[2017-05-29 06:45] VITALS: BP 123/83
[2017-05-29] MEDS ORDERED: OMEP-110 PO (06:58)
[2017-05-29] MEDS ORDERED: FENTANYL PF 100 MCG/2ML ONE (07:58)
[2017-05-29] MEDS ORDERED: MIDAZOLAM 1 MG/ML, 5ML ONE (07:58)
[2017-05-29] MEDS ORDERED: NALOXONE 1 MG/ML, 2ML ONE (07:59)
[2017-05-29] MEDS ORDERED: FLUMAZENIL 0.1 MG/1 ML, 5ML ONE (07:59)
== END 2017-05-29 17:00 | disposition home or self-care (01) ==
LOC: OUT 06:05
PROVIDERS: ATTEND Internal Medicine Hematology & Oncology
DX: C76.0 Malignant neoplasm of head, face and neck (principal); F17.210 Nicotine dependence, cigarettes, uncomplicated; I25.10 Atherosclerotic heart disease of native coronary artery without angina pectoris; F32.9 Major depressive disorder, single episode, unspecified; F41.9 Anxiety disorder, unspecified; E03.9 Hypothyroidism, unspecified; Z88.0 Allergy status to penicillin; Z98.890 Other specified postprocedural states; Z72.89 Other problems related to lifestyle
CPT/HCPCS: 38222; 77012; 85097; 88237; 88264; 88280; 88305; 88311; 88313; 99156; 99157; J2250; J3010; J7030; 85060; J2310